=== PATIENT | female | born 1940 | race Caucasian/White ===

== ENCOUNTER → 2020-05-27 | Outpatient (CLI) | payer OTHER, SELFPAY | LOC: NM 09:36 | DX: C50.919 Malignant neoplasm of unspecified site of unspecified female breast (principal); I70.0 Atherosclerosis of aorta | CPT/HCPCS: 36415; 71260; 78306; 82565; A9503; Q9965 ==

== ENCOUNTER → 2020-10-16 | Outpatient (CLI) | payer OTHER | LOC: CT 08:18 | DX: C50.911 Malignant neoplasm of unspecified site of right female breast (principal); Z17.1 Estrogen receptor negative status [ER-]; Z90.11 Acquired absence of right breast and nipple; J43.9 Emphysema, unspecified | CPT/HCPCS: 36415; 71260; 78306; 82565; 84520; A9503; Q9965 ==

== ENCOUNTER → 2021-01-05 | Outpatient (CLI) | payer OTHER, MEDICAID | LOC: NM 09:00 | DX: C50.911 Malignant neoplasm of unspecified site of right female breast (principal); Z17.1 Estrogen receptor negative status [ER-] | CPT/HCPCS: 78306; A9503 ==

== ENCOUNTER → 2021-01-09 | Outpatient (CLI) | payer OTHER | LOC: CT 07:34 | DX: C50.911 Malignant neoplasm of unspecified site of right female breast (principal); Z17.1 Estrogen receptor negative status [ER-]; R91.8 Other nonspecific abnormal finding of lung field | CPT/HCPCS: 36415; 71260; 82565; Q9967 ==

== ENCOUNTER → 2021-03-26 | Outpatient (CLI) | payer OTHER | LOC: EMI 03-18 09:00 | DX: C50.311 Malignant neoplasm of lower-inner quadrant of right female breast (principal); C79.51 Secondary malignant neoplasm of bone; R93.7 Abnormal findings on diagnostic imaging of other parts of musculoskeletal system; M51.26 Other intervertebral disc displacement, lumbar region; M48.061 Spinal stenosis, lumbar region without neurogenic claudication; M89.9 Disorder of bone, unspecified; M51.84 Other intervertebral disc disorders, thoracic region | CPT/HCPCS: 72146; 72148 ==

== ENCOUNTER 2021-04-25 22:16 | Emergency (ER) | payer OTHER ==
[2021-04-26 00:31] LABS: HEMOGLOBIN 13.2 gm/dl (12.3-15.3); RED BLOOD COUNT 4.26 M/UL (4.00-5.10); WHITE BLOOD COUNT 7.9 K/UL (4.5-11.0)
[2021-04-26 00:53] LABS: BUN/CREATININE RATIO 24 (0-10)
[2021-04-26] MEDS ORDERED: PHENERGAN 12.12.5 M1 PO (01:37)
[2021-04-26] MEDS ORDERED: LACTULOSE10 GM/152 PO (01:37)
== END 2021-04-26 01:43 | disposition home or self-care (01) ==
LOC: ER1 22:16
PROVIDERS: Family Medicine
DX: R11.0 Nausea (principal); M54.9 Dorsalgia, unspecified; G89.29 Other chronic pain; F11.20 Opioid dependence, uncomplicated; C79.51 Secondary malignant neoplasm of bone; F17.200 Nicotine dependence, unspecified, uncomplicated; Z85.3 Personal history of malignant neoplasm of breast; Z88.5 Allergy status to narcotic agent
CPT/HCPCS: 80053; 81001; 83690; 85025; 99283

== ENCOUNTER → 2021-04-29 | Outpatient (CLI) | payer OTHER ==
[~2021-04-29] MED LIST: LACTULOSE10 GM/152 PO; PHENERGAN 12.12.5 M1 PO
== END ==
LOC: NM 04-16 08:10
DX: C50.311 Malignant neoplasm of lower-inner quadrant of right female breast (principal); C79.51 Secondary malignant neoplasm of bone
CPT/HCPCS: 78306; A9503

== ENCOUNTER → 2021-06-02 | Outpatient (CLI) | payer OTHER | LOC: CT 05-06 14:00 | DX: C50.311 Malignant neoplasm of lower-inner quadrant of right female breast (principal); C79.51 Secondary malignant neoplasm of bone | CPT/HCPCS: 71260; Q9967 ==

== ENCOUNTER → 2021-08-27 | Outpatient (CLI) | payer OTHER | LOC: CT 08-17 14:00 | DX: C50.311 Malignant neoplasm of lower-inner quadrant of right female breast (principal); C79.51 Secondary malignant neoplasm of bone | CPT/HCPCS: 71260; Q9967 ==

== ENCOUNTER → 2021-09-22 | Outpatient (CLI) | payer OTHER | LOC: MRI 09-08 09:30 | DX: K83.8 Other specified diseases of biliary tract (principal); C50.311 Malignant neoplasm of lower-inner quadrant of right female breast; C79.51 Secondary malignant neoplasm of bone; R16.0 Hepatomegaly, not elsewhere classified | CPT/HCPCS: 74181 ==

== ENCOUNTER → 2021-09-23 | Outpatient (CLI) | payer OTHER | LOC: NM 08-24 09:00 | DX: C50.311 Malignant neoplasm of lower-inner quadrant of right female breast (principal); C79.51 Secondary malignant neoplasm of bone | CPT/HCPCS: 78306; A9503 ==

== ENCOUNTER 2021-10-05 20:21 | Emergency (ER) | payer OTHER ==
[~2021-10-05 20:21] MED LIST changes: +ALPRAZOLAM0.5 MG PO; +DEXAMETHASONE 44 MG PO; +FENTANYL1 EACH TD; +GENERLAC10 GM/15 M PO; +OXYCODONE HCL10 MG PO; +XANAX1 MG PO; +ZESTRIL/PRINIVI10 MG PO; +ZOFRAN 4 MG TAB4 MG PO
[2021-10-05 20:53] LABS: HEMOGLOBIN 14.2 gm/dl (12.3-15.3); RED BLOOD COUNT 4.59 M/UL (4.00-5.10); WHITE BLOOD COUNT 17.1 K/UL (4.5-11.0)
[2021-10-05 21:17] LABS: BUN/CREATININE RATIO 39 (0-10)
== END 2021-10-05 23:26 | disposition left against medical advice (07) ==
LOC: ER1 20:21
PROVIDERS: Family Medicine
DX: J44.9 Chronic obstructive pulmonary disease, unspecified (principal); C50.919 Malignant neoplasm of unspecified site of unspecified female breast; C79.51 Secondary malignant neoplasm of bone; F17.200 Nicotine dependence, unspecified, uncomplicated; Z90.49 Acquired absence of other specified parts of digestive tract
CPT/HCPCS: 71045; 80053; 82550; 82553; 84484; 85025; 93005; 99283

== ENCOUNTER → 2021-10-07 | Outpatient (CLI) | payer OTHER | LOC: MRI 09-30 15:00 | DX: C50.311 Malignant neoplasm of lower-inner quadrant of right female breast (principal); C79.51 Secondary malignant neoplasm of bone; G31.9 Degenerative disease of nervous system, unspecified | CPT/HCPCS: 70553; A9577 ==

== ENCOUNTER 2021-10-08 15:14 | Observation (INO) | payer OTHER ==
[~2021-10-08] VITALS: Ht 170.2 cm; Wt 59.4 kg
[2021-10-08 16:16] LABS: HEMOGLOBIN 14.6 gm/dl (12.3-15.3); RED BLOOD COUNT 4.72 M/UL (4.00-5.10); WHITE BLOOD COUNT 17.1 K/UL (4.5-11.0)
[2021-10-08 16:37] LABS: BUN/CREATININE RATIO 39 (0-10)
== END 2021-10-08 21:00 | disposition left against medical advice (07) ==
LOC: ER1 15:14 → CDU 18:32
PROVIDERS: Emergency Medicine; ADMIT Internal Medicine
DX: R07.9 Chest pain, unspecified (principal); R13.10 Dysphagia, unspecified; R79.89 Other specified abnormal findings of blood chemistry; D72.829 Elevated white blood cell count, unspecified; E87.1 Hypo-osmolality and hyponatremia; E53.8 Deficiency of other specified B group vitamins; I10 Essential (primary) hypertension; K22.89 Other specified disease of esophagus; K21.9 Gastro-esophageal reflux disease without esophagitis; K59.00 Constipation, unspecified; F17.210 Nicotine dependence, cigarettes, uncomplicated; F41.9 Anxiety disorder, unspecified; F11.20 Opioid dependence, uncomplicated; C79.51 Secondary malignant neoplasm of bone; Z53.29 Procedure and treatment not carried out because of patient's decision for other reasons; Z85.3 Personal history of malignant neoplasm of breast; Z90.13 Acquired absence of bilateral breasts and nipples
CPT/HCPCS: 71045; 80053; 81001; 82550; 82553; 83605; 83880; 84439; 84443; 84484; 85025; 87040; 87086; 93005; 96361; 96374; 99285; G0378; J0696; Q9967